=== PATIENT | male | born 1945 | race Hispanic/Latino ===

== ENCOUNTER 2018-08-20 08:05 | Day surgery (SDC) | payer MEDICARE, BC ==
[2018-08-12 11:45] VITALS: BMI 28.5
[2018-08-20 09:01] LABS: INR 2.25; PARTIAL THROMBOPLASTIN TIME 44.6 Seconds (25.1-36.5); PROTHROMBIN TIME 26.3 SECONDS (9.4-12.5)
--- NOTE | 2018-08-20 10:12 | CARD ---
APPROVED REPORT Date of service: 08/20/2018 EKG Measurement Heart [id number] <Conclusion> Atrial fibrillation Abnormal ECG
[2018-08-20] MEDS ORDERED: Flumazenil 0.1 mg/ml Inj (5ml) IVP ONE (10:16)
[2018-08-20] MEDS ORDERED: Naloxone 0.4 mg/ml Inj (Adult) ONE (10:16)
[2018-08-20] MEDS ORDERED: Midazolam 2 MG/2 ML VIAL ONE ×2 (10:16→10:48)
[2018-08-20] MEDS ORDERED: Midazolam 2 MG/2 ML VIAL IV ONE ×3 (10:19→10:47)
[2018-08-20 12:21] VITALS: TEMP 98.4; O2SAT 93
--- NOTE | 2018-08-20 12:26 | CARD ---
APPROVED REPORT Date of service: 08/20/2018 EXAM: Two-dimensional and M-mode echocardiogram with Doppler and color Doppler. INDICATION Atrial Fibrillation Reason For Test : Rule out Intracardiac Thrombus. PROCEDURE After obtaining informed consent, patient underwent transesophageal echo in the Echo Lab. Type of Sedation : Conscious Sedation Sedation was achieved with Versed, Fentanyl intravenously. Transesophageal probe was inserted and advanced into esophagus without difficulty. Echo enhancement agent administered: Agitated Saline The DUY was performed without complications. Synchronized Cardioversion acheived with 200 Joules after 1 attempt(s). Rhythm following Synchronized Cardioversion: Normal Sinus Rhythm Throughout the procedure, the blood pressure, pulse oximetry, cardiac rhythm, and rate were monitored. The patient tolerated the procedure without adverse effects. Recovery from conscious sedation was uneventful and vital signs were stable. LEFT VENTRICLE The left ventricle is normal size. There is normal left ventricular wall thickness. The left ventricular function is normal. The left ventricular ejection fraction is within the normal range. There is normal LV segmental wall motion. RIGHT VENTRICLE The right ventricle is normal size. The right ventricular systolic function is normal. ATRIA No thrombus or spontaneous echo contrast is seen in the left atrium or left atrial appendage. The left atrium is moderately dilated. The right atrium is mildly dilated. The interatrial septum is intact with no evidence for an atrial septal defect. AORTIC VALVE The aortic valve is normal in structure. No aortic regurgitation is present. There is no aortic valvular stenosis. MITRAL VALVE The posterior mitral valve leaflet appears myxomatous. Moderate mitral valve prolapse is present. TRICUSPID VALVE The tricuspid valve is normal in structure. There is mild tricuspid regurgitation. PULMONIC VALVE The pulmonary valve is normal in structure. GREAT VESSELS The aortic root is normal in size. The ascending aorta is normal in size. There is no atherosclerotic plaque seen in the descending aorta. The IVC is normal in size and collapses >50% with inspiration. PERICARDIAL EFFUSION There is no pericardial effusion. There is no pleural effusion. <Conclusion> Biatrial enlargement. Normal LV size and systolic function. Posterior MVP seen. Severe eccentric jet of MR present. Mild TR. No thrombus or SEC seen in LA or KIMBERLY. Successful cardioversion to NSR with 200 Joules.
[2018-08-20 13:29] VITALS: BP 174/72; PULSE 68; RESP 19
--- NOTE | 2018-08-20 17:52 | CARD ---
APPROVED REPORT Date of service: 08/20/2018 EKG Measurement Heart [id number] <Conclusion> Sinus rhythm with 1st degree AV block Otherwise normal ECG
== END 2018-08-20 14:00 | disposition home or self-care (01) ==
LOC: CATH 08:05 → TEE 08:05
PROVIDERS: ATTEND Internal Medicine Cardiovascular Disease
DX: I48.91 Unspecified atrial fibrillation (principal); I44.0 Atrioventricular block, first degree; I51.7 Cardiomegaly

== ENCOUNTER 2018-12-31 06:04 | Day surgery (SDC) | payer MEDICARE ==
[2018-12-26 10:30] VITALS: BMI 25.6
[2018-12-31] MEDS ORDERED: Iohexol 350mgl/ml 50 ML ONE (06:36)
[2018-12-31] MEDS ORDERED: Iodixanol 320 MG/ML 200 ML BOTTLE IV ONE (06:36)
[2018-12-31] MEDS ORDERED: Nitroglycerin 50mg in D5W 0 MG/0 ML BOTTLE IV ONE (06:36)
[2018-12-31] MEDS ORDERED: Iodixanol 320 MG/ML 100 ML BOTTLE IV ONE (06:36)
[2018-12-31] MEDS ORDERED: Phenylephrine 10 mg/ml Inj ONE (06:36)
[2018-12-31] MEDS ORDERED: Lidocaine PF 2% (5 ml) Inj (For Cardiac Arrhy) ONE (06:36)
[2018-12-31 07:00] LABS: BASO # 0.1 K/mm3 (0.0-2.0); EOS # 0.4 (0.0-0.7); EOS % 3.4 % (1.5-5.0); HEMOGLOBIN 11.8 g/dL (14.0-18.0); LYMPH # 1.9 (1.2-3.4); LYMPH % 18.2 % (22.0-35.0); MEAN CELL VOLUME 81.8 fl (80.0-105.0); MEAN CORPUSCULAR HEMOGLOBIN 26.6 pg (25.0-35.0); MEAN CORPUSCULAR HGB CONC 32.5 g/dl (31.0-37.0); MEAN PLATELET VOLUME 9.5 fl (7.0-11.0); MONO % 9.7 % (1.0-6.0); RBC 4.44 10^6/uL (3.5-6.1); RED CELL DISTRIBUTION WIDTH 14.7 % (11.5-14.5); WHITE BLOOD COUNT 10.4 10^3/uL (4.5-11.0)
[2018-12-31] MEDS ORDERED: Adenosine 90 mg/30mL IV ONE (07:11)
[2018-12-31 07:12] LABS: BLOOD UREA NITROGEN 14 mg/dL (7-21); CALCIUM 9.1 mg/dL (8.4-10.5); GFR NON-AFRICAN AMERICAN > 60; HDL CHOLESTEROL 35 mg/dL (29-60)
[2018-12-31 07:14] LABS: INR 1.27; PROTHROMBIN TIME 14.3 SECONDS (9.4-12.5)
[2018-12-31 07:22] LABS: LDL CHOLESTEROL 92 mg/dL (0-129)
[2018-12-31] MEDS ORDERED: Midazolam 2 MG/2 ML VIAL ONE ×3 (07:26→08:06)
[2018-12-31 07:59] VITALS: O2SAT 95
[2018-12-31] MEDS ORDERED: Sodium Chloride 0.9% 1,000 ML IV SCH (08:15)
[2018-12-31] MEDS ORDERED: Potassium Chloride 10 mEq ER Tab PO ONE (09:48)
[2018-12-31 16:07] VITALS: BP 177/70; PULSE 60; RESP 20; TEMP 97.9
--- NOTE | 2018-12-31 19:37 | CON ---
DATE: 12/31/2018 HISTORY OF PRESENT ILLNESS: I saw him status post cardiac cath with Dr. Salter. He is resting comfortably in bed. His blood pressure at this time is little bit high. He has no chest pain. No shortness of breath. No abdominal pain at this time. He had a cardiac cath, which showed leaky valve, I put a stent in. PAST MEDICAL HISTORY: Cardiac arrhythmia, hypertension, anemia, glaucoma, and history of cancer. There is a family history of cancer. He has a leaky mitral valve repair in 10/2018, history of right and left retinal tears, and coughing and sinus surgery. He has lymphoma mom and brother has lung cancer. He has had a right hydrocelectomy, left nephrectomy, excision of basal cell of the cancer of the nose, colonoscopy, sinus surgery, polypectomy, stent placement, and removal of the stent. SOCIAL HISTORY: He quit smoking and quit alcohol in 1998. He has had blood transfusions in the past. He is here for PCI of the RCA. He has had some shortness of breath. Presently, he is lying flat in bed. He is comfortable. He is eating breakfast. No acute vision or hearing changes. No chest pain, shortness of breath, or abdominal pain at this time. No extremity pain. PHYSICAL EXAMINATION: VITAL SIGNS: 99 temp, 73 pulse, 191/87 blood pressure, 18 respiratory rate, and 95% O2 sat on room air. HEENT: Head is atraumatic and normocephalic. Throat is moist. NECK: Supple. HEART: Regular rate. LUNGS: Decreased breath sounds, but clear. ABDOMEN: Soft and nontender. Positive bowel sounds . EXTREMITIES: Have no edema. SKIN: For what I could tell is intact. No apparent rashes or ulcers. NEUROLOGIC: Alert and oriented x3. Cranial nerves II through XII grossly intact. Thyroid midline. LABORATORY DATA: He has a 142 sodium, potassium 3.3, we will give him potassium, BUN 14, creatinine 1.1, GFR is greater than 60, sugar is 111, calcium is 9.1, triglycerides 101, cholesterol 155, LDL 92, HDL 35, and INR is 1.27. White count is 10.4, hemoglobin 11.8, hematocrit 36.3, and platelets 275. ASSESSMENT AND PLAN: He is on aspirin, Plavix, IV fluids, Tylenol, and Xanax. We will put him back on blood pressure medications as per Dr. Salter. I will give him one potassium for his low potassium. I understand he will be discharge later on today. I will follow up in the office next week. 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 follow. Juan J Angeles DO MTDD
--- NOTE | 2018-12-31 22:09 | CARD ---
APPROVED REPORT Date of service: 12/31/2018 EKG Measurement Heart [id number] <Conclusion> Atrial fibrillation with a slow ventricular response Nonspecific ST and T wave abnormalities Abnormal ECG
--- NOTE | 2018-12-31 23:09 | CARDCATH ---
PROCEDURE DATE: 12/31/2018 PROCEDURES: 1. Selective left and right coronary angiography. 2. Fractional flow reserve measurement of left circumflex artery lesion. 3. Percutaneous coronary intervention of distal right coronary artery and patent ductus arteriosus stenoses with drug-eluting stents. 4. Right femoral arteriography. 5. Angio-Seal deployment. HISTORY: This is a 73-year-old male with known coronary disease, admitted for PCI of his RCA and functional evaluation of his left circumflex lesion. INDICATION: Coronary artery disease. FINDINGS: A 3.5 EBU guide catheter was utilized to cannulate the left coronary artery. 5000 units of intravenous heparin was administered and the ACT was greater than 220 seconds during the procedure. The lesion in the left circumflex artery was successfully crossed with the use of a coronary flow wire. This was advanced beyond the mid circumflex stenosis. Following this, IV adenosine was administered as per protocol. The patient was observed under continuous monitoring for total of 10 minutes of infusion. The maximum fractional flow reserve was 0.92. This was consistent with a nonsignificant moderate coronary artery stenosis. Following this, the flow wire was removed as was the guide catheter. Following this, a JR4 guide catheter was advanced and used to engage the right coronary artery. The same flow wire was then advanced into the distal PDA under fluoroscopic guidance. Following this, the PDA lesion was then treated with balloon dilatation utilizing a 2.5 x 10 mm balloon. The balloon was then removed, and a 2.75 x 12 mm Resolute [place] drug-eluting stent was advanced and inflated to 12 atmospheres. Ultimately, there was reduction in percent luminal diameter stenosis from 90 to 0%. Following this, the stent delivery system was removed and the early distal segment was treated with placement of a 3.0 x 26 mm Resolute [place] drug-eluting stent. This was inflated to 14 atmospheres for 45 seconds. There was 0% residual stenosis following at the site of the stent. There was RAFAT grade 3 flow present before and after the intervention. RIGHT FEMORAL ARTERIOGRAPHY: A right femoral arteriogram was performed inthe GARCIA projection. This revealed no evidence of significant disease and appropriate level of arterial puncture. The puncture site was then closed with deployment of an Angio-Seal device. CONCLUSION: 1. Successful PCI of distal RCA and PDA lesion as described above. 2. Fractional flow reserve measurement of mid left circumflex stenosis confirming moderate lesion of no hemodynamic significance. RECOMMENDATIONS: Aspirin and Plavix therapy will be continued for one year. The patient will be scheduled for mitral valve replacement at [facility] in the near future. Continue risk factor control as advised. Hemal Salter MD cc: Juan J Angeles DO MTDD
== END 2018-12-31 16:45 | disposition home or self-care (01) ==
LOC: CATH 06:04 → 2RSO 08:43 → CATH 16:45
PROVIDERS: ATTEND Internal Medicine Cardiovascular Disease
DX: I25.10 Atherosclerotic heart disease of native coronary artery without angina pectoris (principal); I10 Essential (primary) hypertension; I48.91 Unspecified atrial fibrillation; E87.6 Hypokalemia; H40.9 Unspecified glaucoma; Z87.891 Personal history of nicotine dependence; Z79.02 Long term (current) use of antithrombotics/antiplatelets; Z79.82 Long term (current) use of aspirin; Z80.1 Family history of malignant neoplasm of trachea, bronchus and lung
CPT/HCPCS: 36415; 80048; 80061; 85025; 85175; 85610; 85730; 86850; 86900; 93005; 93454; 99152; 99153; C1725; C1760; C1769 ×2; C1874 ×2; C1887 ×2; C2629; C9600; J0153; J1644 ×2; J2250; J3010; J7030; Q9966

== ENCOUNTER 2019-02-04 11:08 | Emergency (ER) | payer MEDICARE ==
[2019-02-04 11:08] VITALS: BMI 25.6
[2019-02-04 11:16] VITALS: BP 166/70; PULSE 73; RESP 18; TEMP 97.6; O2SAT 98
--- NOTE | 2019-02-04 11:42 | ED PDOC ---
Arrival/HPI - General Chief Complaint: ENT Problem Historian: Patient - History of Present Illness Narrative History of Present Illness (Text): 02/04/19 11:37 73 year old M with pmh of Cardiac arrhythia on Coumadin, hypertension, anemia, glaucoma and cardiac catheterization (1 month ago) presents with chief complaint of epistaxis since 08:00 since this morning. Patient denies any trauma and associates bleeding to recently being on plavix. Patient is also complaint with warfarin. Patient denies any fevers, chills, headache, dizziness, shortness of breath, chest pain, dyspnea on exertion, cough, back pain, neck pain, or any other complaint. Time/Duration: 4-6 hours Symptom Onset: Sudden Symptom Course: Unchanged Activities at Onset: Light Context: Home Past Medical History - Provider Review Nursing Documentation Reviewed: Yes - Cardiac Hx Atrial Fibrillation: Yes Hx Hypertension: Yes - Neurological Hx Paralysis: No - HEENT Other/Comment: Sinus Sx - Hematological/Oncological Hx Blood Transfusions: Yes (2000) Hx Blood Transfusion Reaction: No - Musculoskeletal/Rheumatological Hx Musculoskeletal Disorders: No - Psychiatric Hx Emotional Abuse: No Hx Physical Abuse: No Hx Substance Use: No - Surgical History Hx Cardiac Catheterization: Yes Hx Eye Surgery: Yes Other/Comment: Sinus Sx - Anesthesia Hx Anesthesia Reactions: No Hx Malignant Hyperthermia: No - Suicidal Assessment Feels Threatened In Home Enviroment: No Family/Social History - Physician Review Nursing Documentation Reviewed: Yes Family/Social History: Unknown Family HX Smoking Status: Former Smoker Hx Alcohol Use: Yes (QUIT 1998) Hx Substance Use: No Allergies/Home Meds Allergies/Adverse Reactions: Allergies acetaminophen [From Tylenol-Codeine] Adverse Reaction (Intermediate, Verified 02/06/19 11:44) GI UPSET codeine [From Tylenol-Codeine] Adverse Reaction (Intermediate, Verified 02/06/19 11:44) GI UPSET Home Medications: Home Meds Medication Instructions Recorded Confirmed Digoxin [Lanoxin] 0.25 mg PO QPM 08/12/18 02/06/19 Ferrous Sulfate [Feosol] 65 mg PO DAILY 08/12/18 02/06/19 Lactobacillus Acidophilus 1 cap PO DAILY 08/12/18 02/06/19 [Acidophilus] Losartan/Hydrochlorothiazide 1 tab PO DAILY 08/12/18 02/06/19 [Losartan-Hctz 100-12.5 mg Tab] Multivit,Calc,Mins/Folic Acid 1 tab PO DAILY 08/12/18 02/06/19 [One-A-Day Proactive 65 Plus Tb] Sotalol [Betapace] 120 mg PO BID 08/12/18 02/06/19 Timolol 0.5% Ophth [Timoptic 0.5% 1 drop LEFTEYE QAM 08/12/18 02/06/19 Ophth Soln] Warfarin [Coumadin] 5 mg PO QPM 08/12/18 02/06/19 Aspirin [Aspirin Chewable] 81 mg PO DAILY 02/04/19 02/06/19 Clopidogrel [Plavix] 75 mg PO DAILY 02/04/19 02/06/19 Review of Systems - Physician Review All systems were reviewed & negative as marked: Yes - Review of Systems Constitutional: absent: Fevers ENT: Epistaxis. absent: Sore Throat, Rhinorrhea Respiratory: absent: SOB, Cough Cardiovascular: absent: Chest Pain Gastrointestinal: absent: Abdominal Pain, Diarrhea, Nausea, Vomiting Genitourinary Male: absent: Dysuria Musculoskeletal: absent: Arthralgias, Back Pain, Neck Pain Skin: absent: Rash, Cellulitis Neurological: absent: Headache, Dizziness, Focal Weakness, Gait Changes, Speech Changes, Disequilibrium Hemo/Lymphatic: absent: Easy Bruising Physical Exam Vital Signs Reviewed: Yes Vital Signs Temp Pulse Resp BP Pulse Ox 02/04/19 11:12 97.6 F 73 18 166/70 H 98 Temperature: Afebrile Blood Pressure: Hypertensive Pulse: Regular Respiratory Rate: Normal Appearance: Positive for: Well-Appearing, Non-Toxic, Comfortable Pain Distress: None Mental Status: Positive for: Alert and Oriented X 3 - Systems Exam Head: Present: Atraumatic, Normocephalic Pupils: Present: PERRL Extroacular Muscles: Present: EOMI Conjunctiva: Present: Normal Mouth: Present: Moist Mucous Membranes Nose (External): No: Atraumatic, Abrasion Nose (Internal): Present: Epistaxis, Other (right setpal oozing) Neck: Present: Normal Range of Motion Respiratory/Chest: Present: Clear to Auscultation, Good Air Exchange. No: Respiratory Distress, Accessory Muscle Use Cardiovascular: Present: Regular Rate and Rhythm, Normal S1, S2. No: Murmurs Abdomen: No: Tenderness, Distention, Peritoneal Signs Back: Present: Normal Inspection Upper Extremity: Present: Normal Inspection. No: Cyanosis, Edema Lower Extremity: Present: Normal Inspection. No: Edema Neurological: Present: GCS=15, CN II-XII Intact, Speech Normal Skin: Present: Warm, Dry, Normal Color. No: Rashes Psychiatric: Present: Alert, Oriented x 3, Normal Insight, Normal Concentration Medical Decision Making ED Course and Treatment: 02/04/19 11:36 Impression: 73 year old M presents with chief complaint of epistaxis since 08:00 since this morning. Patient denies any trauma and associates bleeding with recently being on plavix Plan: -- Prothrombin time -- Reassess and disposition Prior Visits: Notes and results from previous visits were reviewed. Patient was last seen in the emergency department on Progress Notes: 02/04/19 12:01 Advised patient to hold pressure on nose, will reassess after 20 mins 02/04/19 12:31 Cauterize with silver nitrate to patient's anterior nasal septum. Site hemostatic. Plan reassess in 20 mins. 02/04/19 12:37 Coagulation -- PT: 23.6, High -- INR: 2.09 -- APTT: 43.3, High 02/04/19 13:05 No bleeding to posterior nasal cavity. Little oozing around previously cauterized area. Further cauterize anterior nasal septum with silver nitrate. Will reassess in 15 mins. Patient mentions he wants to be discharged home 02/04/19 13:20 Patient have no active epistaxis. Agrees to stay longer for observation. 02/04/19 14:00 Patient states nose started bleeding while attempting to have a bowel movement. 02/04/19 14:08 Active bleeding noted. Plan tamponade w/nasal packing. Patient agreeable w/POC. 4.5cm anterior rapid rhino placed. 02/04/19 14:15 Patient was reassessed, no bleeding. Plan dc with Keflex prescription and advised to follow up in 2 days to have rapid rhino removed. - Scribe Statement The provider has reviewed the documentation as recorded by the Zay Lewis All medical record entries made by the Scribe were at my direction and personally dictated by me. I have reviewed the chart and agree that the record accurately reflects my personal performance of the history, physical exam, medical decision making, and the department course for this patient. I have also personally directed, reviewed, and agree with the discharge instructions and disposition. Disposition/Present on Arrival - Present on Arrival Any Indicators Present on Arrival: No History of DVT/PE: No History of Uncontrolled Diabetes: No Urinary Catheter: No History of Decub. Ulcer: No History Surgical Site Infection Following: None - Disposition Have Diagnosis and Disposition been Completed?: Yes Diagnosis: Epistaxis Disposition: HOME/ ROUTINE Disposition Time: 14:17 Patient Plan: Discharge Condition: IMPROVED Discharge Instructions (ExitCare): Nosebleeds (DC) Additional Instructions: LIV VICENTE, thank you for letting us take care of you today. Your provider was Irene Spain MD and you were treated for nose bleeding. The emergency medical care you received today was directed at your acute symptoms. If you were prescribed any medication, please fill it and take as directed. It may take se veral days for your symptoms to resolve. Return to the Emergency Department if your symptoms worsen, do not improve, or if you have any other problems. Please return to the Emergency Department in 2 days for nasal packing removal. Our treatment cannot replace ongoing medical care by a primary care provider outside of the emergency department. Thank you for allowing the [facility] team to be part of your care today. Prescriptions: Cephalexin [cephalexin] 500 mg PO QID #28 cap Forms: [employer] (Fijian)
[2019-02-04 12:00] LABS: INR 2.09; PARTIAL THROMBOPLASTIN TIME 43.3 Seconds (26.9-38.3); PROTHROMBIN TIME 23.6 SECONDS (9.4-12.5)
== END 2019-02-04 14:40 | disposition home or self-care (01) ==
LOC: ED 11:08
DX: R04.0 Epistaxis (principal); I48.91 Unspecified atrial fibrillation; I10 Essential (primary) hypertension; Z87.891 Personal history of nicotine dependence; Z79.01 Long term (current) use of anticoagulants

== ENCOUNTER 2019-02-06 11:07 | Emergency (ER) | payer MEDICARE ==
[2019-02-06 11:44] VITALS: BMI 24.7
[2019-02-06 11:45] VITALS: BP 159/71; PULSE 76; RESP 18; TEMP 98.2; O2SAT 97
--- NOTE | 2019-02-06 12:13 | ED PDOC ---
Arrival/HPI - General Chief Complaint: ENT Problem Time Seen by Provider: 02/06/19 11:58 Historian: Patient - History of Present Illness Time/Duration: Other (two days) Symptom Course: Improving Severity Level: Mild Activities at Onset: Rest Associated Symptoms (Text): 02/06/19 12:10 Patient complains of right nares epistaxis 2 days ago. He was seen in the emergency department and had a Rhino Rocket placed. He was directed by the emergency department physician at that time to return to the emergency department to have the Rhino Rocket removed today. There is no further bleeding. He has been taking his Coumadin and Plavix. Past Medical History - Infectious Disease Hx of Infectious Diseases: None - Cardiac Hx Atrial Fibrillation: Yes Hx Hypertension: Yes - Neurological Hx Paralysis: No - HEENT Other/Comment: Sinus Sx - Hematological/Oncological Hx Blood Transfusions: Yes (2000) Hx Blood Transfusion Reaction: No - Musculoskeletal/Rheumatological Hx Musculoskeletal Disorders: No - Psychiatric Hx Emotional Abuse: No Hx Physical Abuse: No Hx Substance Use: No - Surgical History Hx Cardiac Catheterization: Yes Hx Eye Surgery: Yes Other/Comment: Sinus Sx - Anesthesia Hx Anesthesia Reactions: No Hx Malignant Hyperthermia: No - Suicidal Assessment Feels Threatened In Home Enviroment: No Family/Social History - Physician Review Nursing Documentation Reviewed: Yes Family/Social History: Unknown Family HX Smoking Status: Former Smoker Hx Alcohol Use: Yes (QUIT 1998) Hx Substance Use: No Allergies/Home Meds Allergies/Adverse Reactions: Allergies acetaminophen [From Tylenol-Codeine] Adverse Reaction (Intermediate, Verified 02/06/19 11:44) GI UPSET codeine [From Tylenol-Codeine] Adverse Reaction (Intermediate, Verified 02/06/19 11:44) GI UPSET Home Medications: Home Meds Medication Instructions Recorded Confirmed Digoxin [Lanoxin] 0.25 mg PO QPM 08/12/18 02/06/19 Ferrous Sulfate [Feosol] 65 mg PO DAILY 08/12/18 02/06/19 Lactobacillus Acidophilus 1 cap PO DAILY 08/12/18 02/06/19 [Acidophilus] Losartan/Hydrochlorothiazide 1 tab PO DAILY 08/12/18 02/06/19 [Losartan-Hctz 100-12.5 mg Tab] Multivit,Calc,Mins/Folic Acid 1 tab PO DAILY 08/12/18 02/06/19 [One-A-Day Proactive 65 Plus Tb] Sotalol [Betapace] 120 mg PO BID 08/12/18 02/06/19 Timolol 0.5% Ophth [Timoptic 0.5% 1 drop LEFTEYE QAM 08/12/18 02/06/19 Ophth Soln] Warfarin [Coumadin] 5 mg PO QPM 08/12/18 02/06/19 Aspirin [Aspirin Chewable] 81 mg PO DAILY 02/04/19 02/06/19 Clopidogrel [Plavix] 75 mg PO DAILY 02/04/19 02/06/19 Review of Systems - Physician Review All systems were reviewed & negative as marked: Yes Physical Exam Vital Signs Temp Pulse Resp BP Pulse Ox 02/06/19 11:44 98.2 F 76 18 159/71 H 97 Temperature: Afebrile Blood Pressure: Hypertensive Pulse: Regular Respiratory Rate: Normal Appearance: Positive for: Well-Appearing, Non-Toxic, Comfortable Pain Distress: None Mental Status: Positive for: Alert and Oriented X 3 - Systems Exam Mouth: Present: Moist Mucous Membranes Pharnyx: No: ERYTHEMA, EXUDATE, TONSILS ENLARGED Nose (External): Present: Atraumatic Nose (Internal): Present: Normal Inspection, No Active Bleeding, Moist, Engorged Medical Decision Making ED Course and Treatment: 02/06/19 12:11 Right nares Rhino Rocket removed sterilely by EDMD. No further bleeding. Disposition/Present on Arrival - Present on Arrival Any Indicators Present on Arrival: No History of DVT/PE: No History of Uncontrolled Diabetes: No Urinary Catheter: No History of Decub. Ulcer: No History Surgical Site Infection Following: None - Disposition Have Diagnosis and Disposition been Completed?: Yes Diagnosis: Epistaxis Disposition: HOME/ ROUTINE Disposition Time: 12:11 Patient Plan: Discharge Condition: IMPROVED Discharge Instructions (ExitCare): Nosebleeds Additional Instructions: Follow-up with Dr. Coffey. Referrals: Salvatore Coffey DO [Staff Provider] - Follow up with primary Forms: [employer] (Irish)
== END 2019-02-06 12:35 | disposition home or self-care (01) ==
LOC: ED 11:07
DX: R04.0 Epistaxis (principal)